=== PATIENT | female | born 1970 | race African-American/Black ===

== ENCOUNTER 2017-01-21 15:41 | Emergency (ER) | payer OTHER ==
[2017-01-21 16:02] VITALS: BP 138/87; PULSE 82; TEMP 97.9; BMI 43.4
--- NOTE | 2017-01-21 16:45 | PDOC ---
History of Present Illness - General Chief Complaint: Pain, Acute Stated Complaint: LT LEG PAIN Time Seen by Provider: 01/21/17 16:23 History Source: Patient Exam Limitations: No Limitations - History of Present Illness Initial Comments: 01/21/17 16:40 This is a 46-year-old woman with a history of GERD, anemia, asthma, bipolar disorder, overactive bladder who presents today with atraumatic swelling inferior medial left knee is also superior and medial to the left ankle. Patient denies any recent trauma, sudden stops, or slips. She denies any recent travel or change in medications. She was evaluated by her primary doctor 3 days ago and was not prescribed anything. She denies fevers, headaches, blurry vision , chest pain, shortness of breath, nausea, vomiting, abdominal pain, difficulty moving bowels, difficulty urinating. Occurred: reports: last week Severity: Yes: mild Lower Extremity Pain Location: left: knee Method of Injury: Yes: unknown Modifying Factors: improves with: None Past History - Travel Traveled outside of the country in the last 30 days: No Close contact w/someone who was outside of country & ill: No - Past Medical History Allergies/Adverse Reactions: Allergies Allergy/AdvReac Type Severity Reaction Status Date / Time acetaminophen [From Tylenol] Allergy Verified 01/21/17 15:57 hydrocodone bitartrate Allergy Verified 01/21/17 15:57 [From Vicodin] Home Medications: Ambulatory Orders NK [No Known Home Medication] 01/21/17 Anemia: Yes Asthma: Yes Psychiatric Problems: Yes (bipolar disorder) - Immunization History Immunization Up to Date: Yes - Suicide/Smoking/Psychosocial Hx Smoking History: Never smoked Have you smoked in the past 12 months: No Number of Cigarettes Smoked Daily: 5 Information on smoking cessation initiated: No Hx Alcohol Use: No Drug/Substance Use Hx: No Substance Use Type: None Review of Systems - Review of Systems Able to Perform ROS?: Yes Is the patient limited Turkmen proficient: No Constitutional: No: Symptoms Reported HEENTM: No: Symptoms Reported Respiratory: No: Symptoms reported Cardiac (ROS): No: Symptoms Reported ABD/GI: No: Symptoms Reported : No: Symptoms Reported Musculoskeletal: Yes: Joint Pain (left knee and left ankle) Integumentary: No: Symptoms Reported Neurological: No: Symptoms reported *Physical Exam - Vital Signs Last Vital Signs Temp Pulse Resp BP Pulse Ox 97.9 F 82 15 138/87 99 01/21/17 15:58 01/21/17 15:58 01/21/17 15:58 01/21/17 15:58 01/21/17 15:58 - Physical Exam General Appearance: Yes: Appropriately Dressed. No: Apparent Distress HEENT: positive: EOMI, IVETH Neck: positive: Trachea midline, Supple Respiratory/Chest: positive: Lungs Clear, Normal Breath Sounds. negative: Chest Tender, Respiratory Distress, Accessory Muscle Use Cardiovascular: positive: Regular Rhythm, Regular Rate, S1, S2. negative: Edema , Murmur Gastrointestinal/Abdominal: positive: Normal Bowel Sounds, Soft. negative: Tender Musculoskeletal: positive: Normal Inspection. negative: CVA Tenderness Extremity: positive: Normal Capillary Refill, Swelling (inferior and anterior- medial to left knee. 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 Patient denies any recent trauma, sudden stops, or slips. She denies any recent travel or change in medications. She was evaluated by her primary doctor 3 days ago and was not prescribed anything. She denies fevers, headaches, blurry vision , chest pain, shortness of breath, nausea, vomiting, abdominal pain, difficulty moving bowels, difficulty urinating. Patient with tenderness to left knee immediately inferior and anterior medial aspect. Full range of motion against resistance. Strength 5 out of 5. Also tender to left lower leg immediately superior to the ankle on the anterior medial side. Patient able to fully extend and dorsiflex ankle against resistance. DDx: fracture vs soft tissue swelling P: I'll get a urine test, x-rays of the left knee and ankle, I will give Motrin 600mg now. Reassess. 01/21/17 18:07 X-ray of the left knee, 3 views. There are very minimal osteoarthritic changes mainly in the medial knee joint compartment. The alignment is satisfactory without evidence of fracture, dislocation or joint effusion No definite soft tissue swelling is identified on these images Impression Very minimal osteoarthritic changes X-ray of the left ankle, 3 views. The ankle mortise is intact. There is moderate soft tissue swelling over the medial and mild soft tissue swelling over the lateral malleolus. No acute fracture or dislocation are identified. A prominent plantar calcaneal spur is present. A small posterior calcaneal spur is also present Impression: Moderate soft tissue swelling over the medial and to a lesser extent lateral malleolus Reported By: Federico Mcneal MD 01/21/17 0220 Patient feels a little bit better after x-rays. I will discharge the patient with referral for orthopedic doctor if pain does not resolve. I discussed the physical exam findings, ancillary test results and final diagnoses with the patient. I answered all of the patient's questions. The patient was satisfied with the care received and felt comfortable with the discharge plan and treatment plan. The patient will call her PMD within 96 hours to arrange follow-up and will return to the Emergency Department with any new, persistent or worsening symptoms. *DC/Admit/Observation/Transfer Diagnosis at time of Disposition: Osteoarthritis Qualifiers: Osteoarthritis location: knee Osteoarthritis type: primary Laterality: left Qualified Code(s): M17.12 - Unilateral primary osteoarthritis, left knee; M17.12 - Unilateral primary osteoarthritis, left knee - Discharge Dispostion Disposition: HOME Condition at time of disposition: Stable Admit: No - Referrals Referrals: STAFF,NOT ON [Primary Care Provider] - Jamel Carmoan MD [Staff Physician] - - Patient Instructions Additional Instructions: Exercise using nonweightbearing exercises such as swimming and/or aqua aerobics. Take Naprosyn or Motrin as directed by manufacturers instructions as needed for pain. Apply ice to affected areas to help relieve pain for no more than 20 minutes at a time. Rest leg as often as possible. Elevate leg when sitting down. Symptoms are not improved within the next week call Dr. Carmona schedule an orthopedic follow-up. Return to the emergency department for any worsening pain, instability in the leg, inability to bear weight, or any other concerns. Thank you very much for choosing us to provide your emergent healthcare needs.
[2017-01-21] MEDS ORDERED: IBUPROFEN 600 MG TABLET (FP) PO ONE ×2 (16:47→16:56)
== END 2017-01-21 18:16 | disposition home or self-care (01) ==
LOC: JERFT 15:41
DX: M17.12 Unilateral primary osteoarthritis, left knee (principal); K21.9 Gastro-esophageal reflux disease without esophagitis; D64.9 Anemia, unspecified; F31.9 Bipolar disorder, unspecified; N32.81 Overactive bladder; J45.909 Unspecified asthma, uncomplicated; Z88.6 Allergy status to analgesic agent
CPT/HCPCS: 73562-TC-LT; 73610-TC-LT; 84703; 99281-25

== ENCOUNTER 2017-12-24 20:35 | Emergency (ER) | payer OTHER ==
[2017-12-24] MEDS ORDERED: KETOROLAC TROMETHAMINE 30 MG/1 ML VIAL IVPUSH ONE (21:04)
[2017-12-24] MEDS ORDERED: PANTOPRAZOLE 40 MG TABLET (FP) PO ONE (21:05)
[2017-12-24 21:09] VITALS: BP 122/66; PULSE 72; TEMP 98.3; BMI 43.7
--- NOTE | 2017-12-24 21:12 | PDOC ---
Attending Attestation - Resident Resident Name: Jake Patel - Medical Decision Making 12/24/17 23:39 Pt has no spinal tenderness and no paraspinal tenderness. She is sleeping comfortably when I return to check up on her. Pt is feeling better with treatment and she is ready to go home. <Nancy Szymanski - Last Filed: 12/24/17 23:39> - ED Attending Attestation I have performed the following: I have examined & evaluated the patient, The case was reviewed & discussed with the resident, I agree w/resident's findings & plan - HPI HPI: 12/24/17 22:43 The patient is a 47 year old female, with a significant past medical history of psychosis, who presents to the emergency department with, chest pain. As per patient, her symptoms were gradual onset worsened with movement, described as a squeezing-like cramp, and ranked a 10/10 at worse. She reports taking Ibuprofen , without relief. She denies any recent travel, shortness of breath, or palpitations. Primary Care Physician: Dr. Azul - Physicial Exam PE: 12/25/17 00:07 GENERAL: Awake, alert, and fully oriented, in no acute distress HEAD: No signs of trauma EYES: PERRLA, EOMI, sclera anicteric, conjunctiva clear ENT: Auricles normal inspection, hearing grossly normal, nares patent, oropharynx clear without exudates. Moist mucosa NECK: Normal ROM, supple, no lymphadenopathy, JVD, or masses LUNGS: Breath sounds equal, clear to auscultation bilaterally. No wheezes, and no crackles HEART: Regular rate and rhythm, normal S1 and S2, no murmurs, rubs or gallops ABDOMEN: Soft, nontender, normoactive bowel sounds. No guarding, no rebound. No masses EXTREMITIES: Normal range of motion, no edema. No clubbing or cyanosis. No cords, erythema, or tenderness NEUROLOGICAL: Cranial nerves II through XII grossly intact. Normal speech, normal gait SKIN: Warm, Dry, normal turgor, no rashes or lesions noted. <Yossi Contreras - Last Filed: 12/25/17 00:07> Attestations - Attestations 12/24/17 22:44 Documentation prepared by Yossi Contreras, acting as medical director of hospice for Nancy Szymanski MD. <Yossi Contreras - Last Filed: 12/25/17 00:07>
--- NOTE | 2017-12-24 21:12 | PDOC ---
History of Present Illness - General Chief Complaint: Back Pain Stated Complaint: CHEST PAIN Time Seen by Provider: 12/24/17 20:42 History Source: Patient Exam Limitations: No Limitations - History of Present Illness Initial Comments: 12/24/17 21:06 47 y/o female with PMH of partial hystrectomy came to hospital because of pain in her chest and right paraspinal area. Pain started this morning, increasing gradually, 9/10 intensity, increases with walking, breathing and lifting right arm, tried ibuprofen which didn't help, pain is like muscle cramp/squeezing. Denies sob, palpiatations, lightheadedness, dysphaiga, heart burn, trauma to chest, cough, fever, runny nose, sneezing. Denies recent travel. PMH: psychosis Past History - Past Medical History Allergies/Adverse Reactions: Allergies Allergy/AdvReac Type Severity Reaction Status Date / Time acetaminophen [From Tylenol] Allergy Verified 12/24/17 21:06 hydrocodone bitartrate Allergy Verified 12/24/17 21:06 [From Vicodin] Home Medications: Ambulatory Orders Methocarbamol [Robaxin -] 500 mg PO TID #21 tablet 12/24/17 Anemia: Yes Asthma: Yes Psychiatric Problems: Yes (bipolar disorder) - Immunization History Immunization Up to Date: Yes - Suicide/Smoking/Psychosocial Hx Smoking History: Never smoked Have you smoked in the past 12 months: No Number of Cigarettes Smoked Daily: 5 Hx Alcohol Use: No Drug/Substance Use Hx: No Substance Use Type: None Review of Systems - Review of Systems Constitutional: No: Chills, Diaphoresis, Fever Respiratory: No: Cough, Shortness of Breath, SOB with Exertion, SOB at Rest, Stridor, Wheezing, Productive cough Cardiac (ROS): Yes: Chest Pain. No: Irregular Heart Rate, Lightheadedness, Palpitations, Syncope ABD/GI: No: Blood Streaked Bowels, Diarrhea, Nausea, Poor Fluid Intake, Rectal Bleeding, Vomiting : No: Burning, Discharge, Frequency, Flank Pain Musculoskeletal: Yes: Back Pain Neurological: No: Headache, Numbness *Physical Exam - Physical Exam General Appearance: Yes: Appropriately Dressed, Apparent Distress HEENT: positive: IVETH, Normal Voice, Pharynx Normal Neck: positive: Supple. negative: Tender Respiratory/Chest: positive: Lungs Clear, Normal Breath Sounds. negative: Chest Tender, Respiratory Distress, Accessory Muscle Use, Crackles, Wheezing Cardiovascular: positive: Regular Rhythm, Regular Rate, S1, S2. negative: Murmur Gastrointestinal/Abdominal: positive: Normal Bowel Sounds, Flat, Soft. 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 Pain started this morning, increasing gradually, 9/10 intensity, increases with walking, breathing and lifting right arm, tried ibuprofen which didn't help, pain is like muscle cramp/squeezing. Denies sob, palpiatations, lightheadedness, dysphaiga, heart burn, trauma to chest, cough, fever, runny nose, sneezing. Denies recent travel. we will get cbc, cmp, ekg, troponin, xray spine and cxr 12/24/17 21:22 will give her aspirin, toradol and protonix. 12/24/17 23:32 labs reviewed, x ray reviewed ekg nsr, no ST changes , trop i negative. patient feels better, discussed with Dr cooper we will dc her on muscle relaxant *DC/Admit/Observation/Transfer Diagnosis at time of Disposition: Muscle spasm of back - Discharge Dispostion Disposition: HOME Condition at time of disposition: Stable Decision to Admit order: No - Referrals Referrals: Peri Azul [Primary Care Provider] - - Patient Instructions Printed Discharge Instructions: DI for Back Spasm Additional Instructions: don't lift heavy weight. Take medicines as prescribed. Take over the counter med for pain. If pain gets worse go to nearest hospital. follow up with your pcp - Post Discharge Activity
[2017-12-24] MEDS ORDERED: ASPIRIN 325 MG TABLET PO ONE (21:21)
[2017-12-24 21:33] LABS: BASO % 0.5 % (0-2.0); EOS % 1.8 % (0-4.5); HEMATOCRIT 32.8 % (32.4-45.2); HEMOGLOBIN 10.9 GM/dL (10.7-15.3); LYMPH % 26.1 % (8-40); MCH 29.5 pg (25.7-33.7); MCHC 33.4 g/dl (32.0-36.0); MEAN CELL VOLUME 88.5 fl (80-96); MEAN PLT VOLUME 7.9 fl (7.5-11.1); MONO % 7.9 % (3.8-10.2); NEUT % 63.7 % (42.8-82.8); PLATELET COUNT 214 K/MM3 (134-434); RDW 14.4 % (11.6-15.6); WHITE BLOOD COUNT 9.6 K/mm3 (4.0-10.0)
[2017-12-24] MEDS ORDERED: ASPIRIN 325 MG TABLET ONE (22:06)
[2017-12-24] MEDS ORDERED: PANTOPRAZOLE 40 MG TABLET (FP) ONE (22:06)
[2017-12-24] MEDS ORDERED: KETOROLAC TROMETHAMINE 30 MG/1 ML VIAL ONE (22:07)
[2017-12-24 22:14] LABS: ALBUMIN 3.6 g/dl (3.4-5.0); ALK PHOS 79 U/L (45-117); ANION GAP 8 MMOL/L (8-16); BILIRUBIN,TOTAL 0.5 mg/dL (0.2-1.0); BLOOD UREA NITROGEN 15 mg/dL (7-18); CALCIUM 8.5 mg/dL (8.5-10.1); CHLORIDE 103 mmol/L (98-107); CO2 29 mmol/L (21-32); CREATININE 0.6 mg/dL (0.55-1.3); GLUCOSE,RANDOM 101 mg/dL (74-106); PHOSPHOROUS 3.7 mg/dL (2.5-4.9); SGOT/AST 15 U/L (15-37); SGPT/ALT 25 U/L (13-61); SODIUM 140 mmol/L (136-145); TOT PROT 7.6 g/dl (6.4-8.2)
[2017-12-24] MEDS ORDERED: METHOCARBAMOL 500 MG TABLET PO ONE (22:21)
[2017-12-24] MEDS ORDERED: METHOCARBAMOL 500 MG TABLET ONE (22:28)
--- NOTE | 2017-12-26 21:50 | EKG ---
Test Reason : Blood Pressure : / mmHG Vent. Rate : 068 BPM Atrial Rate : 068 BPM P-R Int : 194 ms QRS Dur : 088 ms QT Int : 402 ms P-R-T Axes : 030 015 019 degrees QTc Int : 427 ms NORMAL SINUS RHYTHM NORMAL ECG WHEN COMPARED WITH ECG OF 08-FEB-2007 15:44, T WAVE INVERSION LESS EVIDENT IN INFERIOR LEADS NONSPECIFIC T WAVE ABNORMALITY NO LONGER EVIDENT IN LATERAL LEADS Confirmed by EMILY RAMOS MD ([id number]) on 12/26/2017 9:50:22 PM Referred By: Confirmed By:EMILY RAMOS MD
== END 2017-12-24 23:58 | disposition home or self-care (01) ==
LOC: JER 20:35
PROC: 3E0333Z Introduction of Anti-inflammatory into Peripheral Vein, Percutaneous Approach (ICD-10-PCS; principal; 2017-12-24)
DX: M62.830 Muscle spasm of back (principal)
CPT/HCPCS: 36415; 71045-TC-FY; 72070-TC-FY; 72100-TC-FY; 80053; 82550; 82553; 83735; 84100; 84484; 85025; 85379; 93005; 93010; 96374; 99282-25